=== PATIENT | female | born 1985 | race Two or more races ===

== ENCOUNTER 2020-07-28 07:40 | Inpatient (IN) ==
[2020-07-28] MEDS ORDERED: BUTORPHANOL 2 MG/ML VIAL IV PRN (07:54)
[2020-07-28] MEDS ORDERED: ONDANSETRON 4 MG/2 ML VIAL IV PRN ×2 (07:54→12:08)
[2020-07-28] MEDS ORDERED: MEPERIDINE 50 MG/1 ML VIAL IV PRN (07:54)
[2020-07-28] MEDS ORDERED: LACTATED RINGERS 1,000 ML IV SCH (08:00)
[2020-07-28] MEDS ORDERED: OXYTOCIN/LR 20 UNIT/1,000 ML BAG IV SCH (08:00)
[2020-07-28] MEDS ORDERED: LACTATED RINGERS 1,000 ML IV ONE (08:03)
[2020-07-28] MEDS ORDERED: ePHEDrine 50 MG/ML VIAL IV PRN (08:03)
[2020-07-28] MEDS ORDERED: hydrOXYzine HCL 25 MG/1 ML VIAL IM PRN (08:03)
[2020-07-28] MEDS ORDERED: PROMETHAZINE 25 MG/1 ML VIAL IM ONE (08:03)
[2020-07-28] MEDS ORDERED: diphenhydrAMINE 50 MG/1 ML VIAL IV PRN ×2 (08:03)
[2020-07-28] MEDS ORDERED: FAMOTIDINE 20 MG/2 ML VIAL IV ONE (08:03)
[2020-07-28] MEDS ORDERED: CITRIC ACID/SODIUM CITRATE 30 ML UDCUP PO ONE (08:03)
[2020-07-28] MEDS ORDERED: NALOXONE 0.4 MG/ML VIAL IV PRN (08:03)
[2020-07-28] MEDS ORDERED: BUTORPHANOL 1 MG/ML VIAL ONE (08:18)
[2020-07-28] MEDS ORDERED: BUTORPHANOL 1 MG/ML VIAL IV ONE (08:19)
[2020-07-28] MEDS ORDERED: fentaNYL 2 MCG/ROPIV 0.2% EPID 100 ML EPIDURAL SCH (08:30)
[2020-07-28 08:39] LABS: Basophils % 0.1 % (0.0-0.8); Eosinophils # 0.1 10*3/uL (0.0-0.87); Eosinophils % 0.4 % (0.00-10.9); Hematocrit 32.3 VOL% (35.7-47.0); Hemoglobin 10.9 GM/DL (12.0-16.0); Immature Granulocytes % 0.7 %; Lymphocytes # 2.2 10*3/uL (1.4-4.0); Lymphocytes % 14.3 % (21.3-54.2); Mean Corpuscular HGB Conc 33.7 GM/DL (32-36); Mean Corpuscular Volume 95.6 FL (87-102); Mean Platelet Volume 11.7 FL (9.6-12.0); Monocytes % 4.2 % (1.7-12.7); Neutrophils % 80.3 % (38.7-73.9); Platelet Count 357 T/CUMM (130-400); Red Blood Count 3.38 MC/CUMM (3.8-5.5); Red Cell Distribution Width 13.1 % (9.3-17.3); White Blood Count 15.1 T/CUMM (4-12)
[2020-07-28 09:03] LABS: Albumin 2.3 G/DL (3.4-5.0); Bilirubin,Total 0.5 MG/DL (0.2-1.0); Calcium 9.1 MG/DL (8.5-10.1)
[2020-07-28 10:26] LABS: Cord Venous Blood HCO3 21.8 MMOL/L; Cord Venous Blood PCO2 46.7 MMHG; Cord Venous Blood PO2 28.7
[2020-07-28] MEDS ORDERED: DIPH/TET/ACEL PERT BOOSTER VACCINE 0.5 ML VIAL IM ONE (12:08)
[2020-07-28] MEDS ORDERED: HYDROCORTISONE 2.5% RECTAL CREAM 30 GM TUBE TOP PRN (12:08)
[2020-07-28] MEDS ORDERED: RHO(D) IMMUNE GLOBULIN 300 MCG SYRINGE IM ONE (12:08)
[2020-07-28] MEDS ORDERED: BISACODYL 10 MG SUPP RECTAL PRN (12:08)
[2020-07-28] MEDS ORDERED: oxyCODONE/ACETAMINOPHEN 5-325 MG TABLET PO PRN ×2 (12:08)
[2020-07-28] MEDS ORDERED: MEASLES/MUMPS/RUBELLA VACCINE 0.5 ML VIAL SUBCUT ONE (12:08)
[2020-07-28] MEDS ORDERED: IBUPROFEN 800 MG TABLET PO PRN (12:08)
[2020-07-28] MEDS ORDERED: BENZOCAINE 20%/MENTHOL 0.5% SPRAY 56 GM CAN TOP PRN (12:08)
[2020-07-28] MEDS ORDERED: OXYTOCIN/LR 20 UNIT/1,000 ML BAG IV ONE ×2 (12:08→13:00)
[2020-07-28] MEDS ORDERED: WITCH HAZEL PADS 100/JAR TOP PRN (12:08)
[2020-07-28] MEDS ORDERED: ACETAMINOPHEN 325 MG TABLET PO PRN (12:08)
[2020-07-28] MEDS ORDERED: LANOLIN 50% CREAM 0.3 OZ TUBE TOP PRN (12:08)
[2020-07-28] MEDS: DOCUSATE SODIUM 100 MG CAPSULE PO SCH (21:58)
[2020-07-29 05:48] LABS: Basophils % 0.2 % (0.0-0.8); Eosinophils # 0.1 10*3/uL (0.0-0.87); Eosinophils % 0.5 % (0.00-10.9); Hematocrit 25.7 VOL% (35.7-47.0); Hemoglobin 8.7 GM/DL (12.0-16.0); Immature Granulocytes % 0.5 %; Immature Granulocytes Absolute 0.08 #; Lymphocytes % 20.3 % (21.3-54.2); Mean Corpuscular HGB Conc 33.9 GM/DL (32-36); Mean Corpuscular Volume 93.5 FL (87-102); Mean Platelet Volume 11.2 FL (9.6-12.0); Monocytes % 5.6 % (1.7-12.7); Neutrophils % 72.9 % (38.7-73.9); Platelet Count 284 T/CUMM (130-400); Red Blood Count 2.75 MC/CUMM (3.8-5.5); Red Cell Distribution Width 13.1 % (9.3-17.3); White Blood Count 14.7 T/CUMM (4-12)
[2020-07-29] MEDS: DOCUSATE SODIUM 100 MG CAPSULE PO SCH (09:54)
[2020-07-29 16:33] VITALS: BP 120/57
== END 2020-07-29 13:20 | disposition home or self-care (01) | DRG 807 ==
LOC: N.LDOUT 07:40 → N.LD 07:43 → N.OB 13:37
PROVIDERS: ADMIT Obstetrics & Gynecology; ATTEND Obstetrics & Gynecology